=== PATIENT | female | born 1995 | race Caucasian/White ===

== ENCOUNTER 2022-11-10 11:56 | Emergency (ER) | payer OTHER, SELFPAY ==
--- NOTE | 2022-11-10 12:19 | ED_ITS ---
HPI - General Adult General Time Seen by Provider: 12:19 Date Seen: 11/10/22 Chief complaint: Psychiatric Problem/Disorder Stated complaint: Mental health Time Seen by Provider: 11/10/22 12:01 Source: patient, family and RN notes reviewed Mode of arrival: ambulatory Limitations: no limitations History of Present Illness HPI narrative: 27-year-old female who presents today for mental evaluation. Patient reports that she ?does not feel well? but does not really expand on this, does say that she has been feeling angry recently. Per patient's mother, for the last 6 weeks or so patient has had increasing anger outbursts. These primarily occur in the morning, initially lasting for about 15 or 20 minutes but now longer in duration. Patient will bang her head against the wall, throw things, and swear. No definite triggers for this although mom notes that patient had a friend in the fall. She is on citalopram which she has been on for while, was recently started on Seroquel about a week ago which does not seem to have made much difference. No suicide ideation and mom is not concerned that the patient will kill herself although she does have some self-injury behaviors which are not new. They have an appointment scheduled with a mental health nurse practitioner in mid November. Patient denies smoking, occasional alcohol use. Mom reports that patient has been frequently saying that she feels like she is ?losing her voice? and has not been eating well. Patient admits does occasional upper abdominal pain but denies vomiting, diarrhea, pain with eating, chest pain, throat pain. Related Data Home Medications Medication Instructions Recorded Confirmed citalopram 20 mg tablet 20 mg PO QDAY 07/19/22 11/10/22 quetiapine 25 mg tablet mg PO BID 11/10/22 Allergies Allergy/AdvReac Type Severity Reaction Status Date / Time Sulfa (Sulfonamide Allergy Unknown Verified 07/19/22 12:39 Antibiotics) Review of Systems Status of ROS: Reports: 10 or more systems reviewed and unremarkable except as noted in History and below PFSH PFSH Social History Smoking Status: Never smoker How often do you have a drink containing alcohol: never AUDIT-C Alcohol total score: 0 Non-prescribed substance use: denies use Exam Narrative: Exam Narrative: General: Well-developed and well-nourished, no acute distress Head: Atraumatic and normocephalic Eyes: Pupils are equal reactive, extraocular motions intact, conjunctiva clear ENT: External nose and ears are normal, posterior pharynx without erythema or exudate Neck: No midline cervical tenderness, full spontaneous range of motion the neck, trachea midline, no adenopathy Heart: Regular rate and rhythm no murmurs or thrills Lungs: Clear to auscultation bilaterally without wheezes or crackles Abdomen: Soft, nontender, nondistended with active bowel sounds Musculoskeletal: No tenderness, deformity, or edema Neurologic: Awake, alert, and oriented x3, no gross focal neurologic deficits, resting nystagmus Psych: Mood and affect are appropriate Skin: No rashes Const: Vital Signs, click to edit/add: Vital Signs - 24 hr 11/10/22 12:21 Temperature 98.4 F Pulse Rate [Pulse Oximeter] 90 Respiratory Rate 14 Blood Pressure [Le ft Upper Arm] 98/61 Pulse Oximetry 100 Oxygen Delivery Me thod Room Air Course Course Hospital Course: Patient seen examined, prior records reviewed. Patient presents today with mom with increased anger outbursts, perseverating that she is losing her voice, poor oral intake. Labs ordered to evaluate for medical etiology of symptoms. Decreased appetite, denies throat pain but does have some epigastric pain, consider gastritis or ulcer. Symptoms may be also related to grief reaction related to a friend's last fall. Mental health assessment requested. Consider CT scan of the head given behavioral change but no other neurologic symptoms and intracranial pathology causing symptoms is clinically unlikely Reevaluation(s) Reevaluation #1: Labs independently interpreted by me demonstrate slightly low hemoglobin, normal white blood cell count, basic panel is reassuring, urine drug screen negative and urinalysis negative, test negative. Mental health assessment is pending. Plan to continue current citalopram and Seroquel at current doses. Time: 13:47 Reevaluation #2: Discussed evaluation with mental health network control operators supervisor, patient has been scheduled with psychiatrist in 3 days. Otherwise stable for discharge. Time: 13:50 Vital Signs Vital signs: Initial Vital Signs Temperature 98.4 F 11/10/22 12:21 Temperature Source Temporal Artery Scan 11/10/22 12:21 Pulse Rate 90 11/10/22 12:21 Respiratory Rate 14 11/10/22 12:21 Blood Pressure 98/61 11/10/22 12:21 Blood Pressure Mean 73 11/10/22 12:21 Pulse Oximetry 100 11/10/22 12:21 Oxygen Delivery Method 11/10/22 12:21 Vital Signs Temperature 98.4 F 11/10/22 12:21 Pulse Rate 90 11/10/22 12:21 Respiratory Rate 14 11/10/22 12:21 Blood Pressure 98/61 11/10/22 12:21 Pulse Oximetry 100 11/10/22 12:21 Oxygen Delivery Method 11/10/22 12:21 Temperature 98.4 F 11/10/22 12:21 Pulse Rate 90 11/10/22 12:21 Respiratory Rate 14 11/10/22 12:21 Blood Pressure 98/61 11/10/22 12:21 Pulse Oximetry 100 11/10/22 12:21 Oxygen Delivery Method 11/10/22 12:21 Medical Decision Making Medical Records Medical records reviewed: Yes I reviewed the patient's medical records Lab Data Lab results reviewed: Yes I reviewed the patient's lab results Labs: Lab Results 11/10/22 11/10/22 11/10/22 Range/Units 13:06 13:06 13:15 WBC 7.64 (4.50-11.00) K/uL RBC 4.85 (4.00-5.20) m/uL Hgb 10.2 L (12.0-16.0) gm/dL Hct 33.9 (33.0-51.0) % MCV 70 L (80-100) fL MCH 21 L (26-34) pg MCHC 30 L (32-36) gm/dL RDW Coeff of Morena 16.0 H (11.5-15.5) % Plt Count 361 (140-440) K/uL Neut % (Auto) 83.4 H (42.0-72.0) % Lymph % (Auto) 8.4 L (20-44) % Henry % (Auto) 7.5 (0.0-11.0) % Eos % (Auto) 0.3 (0.0-7.0) % Baso % (Auto) 0.3 (0.0-3.0) % Neut # (Auto) 6.40 (1.7-7.0) K/uL Lymph # (Auto) 0.60 L (0.90-2.90) K/uL Henry # (Auto) 0.60 (0.00-0.90) K/UL Eos # (Auto) 0.02 (0.00-0.50) K/uL Baso # (Auto) 0.02 (0.00-0.30) K/uL Sodium 139 (135-149) mmol/L Potassium 4.0 (3.6-5.1) mmol/L Chloride 108 (96-114) mmol/L Carbon Dioxide 24 (20-32) mmol/L BUN 7 (5-24) mg/dL Creatinine 0.5 (0.5-1.5) mg/dL Estimated Creat Clear 123.55 Estimated GFR 133 ml/min Glucose 111 (60-115) mg/dL Calcium 8.7 (8.4-10.6) mg/dL Total Bilirubin 0.5 (0.1-1.5) mg/dL Direct Bilirubin 0.1 (0.0-0.5) mg/dL AST 22 (12-35) U/L ALT 18 (4-35) U/L Alkaline Phosphatase 41 (40-150) U/L Total Protein 6.2 (6.0-8.3) g/dL Albumin 4.1 (3.3-5.0) g/dL HCG, Qual Negative (Negative) Urine Opiates Screen (Negative) Ur Oxycodone Screen (Negative) Urine Methadone Screen (Negative) Ur Propoxyphene Screen (Negative) Ur Barbiturates Screen (Negative) U Tricyclic Antidepress (Negative) Ur Phencyclidine Scrn (Negative) Ur Amphetamines Screen (Negative) U Methamphetamines Scrn (Negative) U Benzodiazepines Scrn (Negative) Urine Cocaine Screen (Negative) U Marijuana (THC) Screen (Negative) Ur Drug Screen Comment 11/10/22 Range/Units 13:15 WBC (4.50-11.00) K/uL RBC (4.00-5.20) m/uL Hgb (12.0-16.0) gm/dL Hct (33.0-51.0) % MCV (80-100) fL MCH (26-34) pg MCHC (32-36) gm/dL RDW Coeff of Morena (11.5-15.5) % Plt Count (140-440) K/uL Neut % (Auto) (42.0-72.0) % Lymph % (Auto) (20-44) % Henry % (Auto) (0.0-11.0) % Eos % (Auto) (0.0-7.0) % Baso % (Auto) (0.0-3.0) % Neut # (Auto) (1.7-7.0) K/uL Lymph # (Auto) (0.90-2.90) K/uL Henry # (Auto) (0.00-0.90) K/UL Eos # (Auto) (0.00-0.50) K/uL Baso # (Auto) (0.00-0.30) K/uL Sodium (135-149) mmol/L Potassium (3.6-5.1) mmol/L Chloride (96-114) mmol/L Carbon Dioxide (20-32) mmol/L BUN (5-24) mg/dL Creatinine (0.5-1.5) mg/dL Estimated Creat Clear Estimated GFR ml/min Glucose (60-115) mg/dL Calcium (8.4-10.6) mg/dL Total Bilirubin (0.1-1.5) mg/dL Direct Bilirubin (0.0-0.5) mg/dL AST (12-35) U/L ALT (4-35) U/L Alkaline Phosphatase (40-150) U/L Total Protein (6.0-8.3) g/dL Albumin (3.3-5.0) g/dL HCG, Qual (Negative) Urine Opiates Screen Negative (Negative) Ur Oxycodone Screen Negative (Negative) Urine Methadone Screen Negative (Negative) Ur Propoxyphene Screen Negative (Negative) Ur Barbiturates Screen Negative (Negative) U Tricyclic Antidepress Negative (Negative) Ur Phencyclidine Scrn Negative (Negative) Ur Amphetamines Screen Negative (Negative) U Methamphetamines Scrn Negative (Negative) U Benzodiazepines Scrn Negative (Negative) Urine Cocaine Screen Negative (Negative) U Marijuana (THC) Screen Negative (Negative) Ur Drug Screen Comment See Note Discharge Plan Discharge Clinical Impression: Depression, Outbursts of anger Patient Disposition: Home w/ Parent or Adult Condition: Stable Instructions: Depression (DC) Additional Instructions: Continue current medications. Follow-up as scheduled with Psychiatry. Schedule follow-up appoint with your primary care doctor as well. Activity Level: No Restrictions Discharge Diet: Regular Prescriptions: No Action citalopram 20 mg tablet 20 mg PO QDAY quetiapine 25 mg tablet PO BID Follow Up/Referrals: Ankur Jennings MD [Primary Care Provider] - Stand Alone Forms: [employer] Info Instructions
[2022-11-10 12:21] VITALS: BP 98/61; PULSE 90; RESP 14; TEMP 36.9; O2SAT 100; BMI 20.5
[2022-11-10 13:17] LABS: Basophils Absolute Auto 0.02 K/uL (0.00-0.30); Basophils Percent Auto 0.3 % (0.0-3.0); Eosinophils Absolute Auto 0.02 K/uL (0.00-0.50); Eosinophils Percent Auto 0.3 % (0.0-7.0); Hematocrit 33.9 % (33.0-51.0); Hemoglobin* 10.2 gm/dL (12.0-16.0); Immature Granulocytes Abs Auto 0.01 K/uL (0.00-0.30); Immature Granulocytes Pct Auto 0.1 %; Lymphocytes Percent Auto 8.4 % (20-44); Mean Corpuscular HGB Conc 30 gm/dL (32-36); Mean Corpuscular Hemoglobin 21 pg (26-34); Mean Corpuscular Volume 70 fL (80-100); Monocytes Percent Auto 7.5 % (0.0-11.0); Neutrophils Percent Auto 83.4 % (42.0-72.0); Platelet Count* 361 K/uL (140-440); Red Blood Count 4.85 m/uL (4.00-5.20); White Blood Count* 7.64 K/uL (4.50-11.00)
[2022-11-10 13:19] LABS: Slide Review Reflex No
[2022-11-10 13:25] LABS: HCG Qualitative* Negative (Negative)
[2022-11-10 13:26] LABS: Albumin* 4.1 g/dL (3.3-5.0); Chloride* 108 mmol/L (96-114); Sodium* 139 mmol/L (135-149)
[2022-11-10 13:28] LABS: Carbon Dioxide* 24 mmol/L (20-32); Creatinine* 0.5 mg/dL (0.5-1.5); Est. Creatinine Clearance* 123.55; Estimated Glomerular Filt Rate 133 ml/min
[2022-11-10 13:29] LABS: Alanine Aminotransferase* 18 U/L (4-35); Alkaline Phosphatase* 41 U/L (40-150); Aspartate Amino Transferase* 22 U/L (12-35); Bilirubin Direct* 0.1 mg/dL (0.0-0.5); Bilirubin Total* 0.5 mg/dL (0.1-1.5); Blood Urea Nitrogen* 7 mg/dL (5-24); Calcium* 8.7 mg/dL (8.4-10.6); Glucose* 111 mg/dL (60-115); Total Protein* 6.2 g/dL (6.0-8.3)
[2022-11-10 13:36] LABS: Amphetamine Screen Urine Negative (Negative); Barbiturate Screen Urine Negative (Negative); Benzodiazepines Screen Urine Negative (Negative); Cannabinoid Screen Urine Negative (Negative); Cocaine Screen Urine Negative (Negative); Methadone Screen Urine Negative (Negative); Methamphetamines Screen Urine Negative (Negative); Opiate Screen Urine Negative (Negative); Oxycodone Screen Urine Negative (Negative); Phencyclidine Screen Urine Negative (Negative); Tricyclic Antidepressant Urine Negative (Negative)
[2022-11-10 13:43] LABS: Bilirubin Urine Negative (Negative); Blood Urine 3+ (Negative); Color Urine Red (Yellow); Glucose Urine Negative (Negative); Ketones Urine Negative (Negative); Leukocyte Esterase Urine Trace (Negative); Nitrite Urine Negative (Negative); Protein Urine 3+ (Negative); Specific Gravity Urine >= 1.030 (1.000-1.030); Urobilinogen Urine 0.2 (0.2-1.0); pH Urine 6.5 (5.0-8.5)
[2022-11-10 13:55] LABS: Appearance Urine Cloudy (Clear)
[2022-11-10 13:56] LABS: RBC Urine >100 (0-2); Squamous Epithelial Cell Urine Many (None-Few); WBC Urine 25-50 (0-5)
== END 2022-11-10 14:26 | disposition home or self-care (01) ==
PROVIDERS: Emergency Provider Family Medicine; PCP Family Medicine
DX: R45.4 Irritability and anger (principal); F32.A Depression, unspecified
CPT/HCPCS: 36415; 80048; 80076; 80306; 81001; 84703; 85025; 87086; 99283; 99284

== ENCOUNTER 2022-12-19 12:00 | Outpatient (RCR) | payer OTHER, SELFPAY | END 2023-04-10 23:59 | disposition home or self-care (01) | PROVIDERS: PCP Family Medicine; Visit Provider Physician Assistant Medical | DX: F20.9 Schizophrenia, unspecified (principal); F79 Unspecified intellectual disabilities; R62.50 Unspecified lack of expected normal physiological development in childhood; Z51.89 Encounter for other specified aftercare | CPT/HCPCS: 97165; 97530 ==